=== PATIENT | male | born 1965 | race American Indian/Alaskan Native ===

== ENCOUNTER 2018-01-11 16:37 | Inpatient (IN) | payer BC ==
[2018-01-11 16:37] VITALS: BMI 33.9
--- NOTE | 2018-01-11 17:00 | C.PDOC ---
History Of Present Illness 52 y/o male presents to ED requesting detox from Heroin. Patient reports last use 9am this morning and denies ETOH use, PCP use, SI/HI or any other complaints at this time. Time Seen by Provider: 01/11/18 16:57 Chief Complaint (Nursing): Medical Clearance History Per: Patient History/Exam Limitations: no limitations Onset/Duration Of Symptoms: Days Current Symptoms Are (Timing): Still Present Suicide/Self Injury Attempted (Context): None Modifying Factor(s): Other (heroin) Past Medical History Reviewed: Historical Data, Nursing Documentation, Vital Signs Vital Signs: Last Vital Signs Temp 98.6 F 01/11/18 18:13 Pulse 88 01/11/18 18:13 Resp 18 01/11/18 18:13 BP 166/76 H 01/11/18 18:13 Pulse Ox 100 01/11/18 18:13 - Medical History PMH: Depression, Diabetes, HTN Surgical History: No Surg Hx - [facility] DPT ADMINISTRATION (03/29/13) Family History: States: No Known Family Hx - Social History Hx Tobacco Use: Yes Hx Alcohol Use: No Hx Substance Use: No - Immunization History Hx Tetanus Toxoid Vaccination: No Hx Influenza Vaccination: No Hx Pneumococcal Vaccination: No Review Of Systems Constitutional: Negative for: Fever, Chills Cardiovascular: Negative for: Chest Pain Respiratory: Negative for: Shortness of Breath Gastrointestinal: Negative for: Nausea, Vomiting Psych: Negative for: Suicidal ideation, Withdrawal Physical Exam - Physical Exam Appears: Non-toxic, No Acute Distress Skin: Warm, Dry, No Rash Head: Atraumatic, Normacephalic Eye(s): bilateral: Normal Inspection Oral Mucosa: Moist Neck: Normal ROM, Supple Cardiovascular: Rhythm Regular Respiratory: Normal Breath Sounds, No Rales, No Rhonchi, No Wheezing Gastrointestinal/Abdominal: Soft, No Tenderness, No Guarding, No Rebound Extremity: Normal ROM, Capillary Refill (<2 seconds) Neurological/Psych: Oriented x3, Normal Speech, Normal Cognition ED Course And Treatment - Laboratory Results Result Diagrams: 01/11/18 17:17 01/11/18 17:17 O2 Sat by Pulse Oximetry: 100 (RA) Pulse Ox Interpretation: Normal Progress - Re-Evaluation Re-evaluation Note: 01/11/18 18:10 MED CLEAR FOR DETOX. CRISIS NOTIFIED Disposition Counseled Patient/Family Regarding: Studies Performed, Diagnosis - Disposition Disposition: HOSPITALIZED Disposition Time: 18:48 Condition: STABLE Forms: [facility] (Gambian) - POA Present On Arrival: None - Clinical Impression Clinical Impression: Narcotic dependence - Scribe Statement The provider has reviewed the documentation as recorded by the Syedibatif Cr All medical record entries made by the Scribe were at my direction and personally dictated by me. I have reviewed the chart and agree that the record accurately reflects my personal performance of the history, physical exam, medical decision making, and the department course for this patient. I have also personally directed, reviewed, and agree with the discharge instructions and disposition. Decision To Admit - Pt Status Changed To: Hospital Disposition Of: Inpatient - Admit Certification Admit to Inpatient:: After my assessment, the patient will require hospitalization for at least two midnights. This is because of the severity of symptoms shown, intensity of services needed, and/or the medical risk in this patient being treated as an outpatient. - InPatient: Physician Admission Certification: I certify that this patient requires 2 or more midnights of care for the following reason:: SEE NOTE - . Bed Request Type: Detox Admitting Physician: Refugio Solomon Patient Diagnosis: Narcotic dependence
[2018-01-11 17:22] LABS: BASO # 0.1 K/uL (0.0-0.2); BASO % 0.9 % (0.0-2.0); EOS # 0.3 K/uL (0.0-0.7); EOS % 3.2 % (0.0-4.0); HEMOGLOBIN 13.4 g/dL (12.0-18.0); LYMPH # 3.5 K/uL (1.0-4.3); LYMPH % 33.4 % (20.0-40.0); MEAN CELL VOLUME 91.4 fL (80.0-94.0); MEAN CORPUSCULAR HEMOGLOBIN 30.9 pg (27.0-31.0); MEAN CORPUSCULAR HGB CONC 33.8 g/dL (33.0-37.0); MEAN PLATELET VOLUME 7.4 fL (7.2-11.7); MONO # 0.7 K/uL (0.0-0.8); MONO % 6.8 % (0.0-10.0); NEUT # 5.7 K/uL (1.8-7.0); NEUT % 55.7 % (50.0-75.0); NRBC % 0.2 % (0.0-2.0); RBC 4.35 Mil/uL (4.40-5.90); RED CELL DISTRIBUTION WIDTH 14.4 % (11.5-14.5); WHITE BLOOD COUNT 10.3 K/uL (4.8-10.8)
[2018-01-11 17:24] LABS: URINE BACTERIA RARE (<OCC); URINE BILIRUBIN NEGATIVE (NEGATIVE); URINE BLOOD NEGATIVE (NEGATIVE); URINE CLARITY Hazy (Clear); URINE COLOR Yellow (YELLOW); URINE GLUCOSE (UA) 1+ mg/dL (Normal); URINE LEUKOCYTE ESTERASE NEG Leu/uL (Negative); URINE PROTEIN 1+ mg/dL (NEGATIVE)
[2018-01-11 17:34] LABS: BARBITURATES, UR NEGATIVE (NEGATIVE); PHENCYCLIDINE, UR NEGATIVE (NEGATIVE)
[2018-01-11 17:52] LABS: ALB/GLOB RATIO 1.2 (1.0-2.1); ALBUMIN 4.1 g/dL (3.5-5.0); ALT/SGPT 20 U/L (21-72); AST/SGOT 25 U/L (17-59); BLOOD UREA NITROGEN 18 mg/dL (9-20); CALCIUM 8.8 mg/dl (8.6-10.4); GFR AFRICAN-AMERICAN > 60; GFR NON-AFRICAN AMERICAN > 60
[2018-01-11 18:06] LABS: BENZODIAZEPINES, UR POSITIVE (NEGATIVE); OPIATES, UR POSITIVE (NEGATIVE)
--- NOTE | 2018-01-11 19:11 | PCM.BM ---
Treatment Plan Problems - Problems identified on initial assessmt poptential for opiate withdrawal Date Initiated: 01/11/18 Time Initiated: 19:10 Status: Active Treatment assets and liabiliti Patient Assests: cognitively intact Patient Liabilities: substance abuse - Milieu Protocol Maintain good personal hygiene: daily Encourage regular showers, daily Remind patient to perform daily oral care, daily Assist patient to perform ADL's Conduct patient checks and document Observation sheet: Q15 minutes Maintain personal safety: every shift Educate patient to report safety concerns to staff, every shift Monitor environment for contraband/sharps Medication safety: Monitor for expected outcome, potential side effects: every shift, Assess barriers to learning: every shift, Assess readiness for medication education: every shift
[2018-01-11] MEDS ORDERED: Benzocaine/Menthol (Cepacol) Lozenge PO PRN (20:21)
[2018-01-11] MEDS ORDERED: Aluminum Hydroxide/Magnesium Hydroxide Susp (30 mL) PO PRN (20:21)
[2018-01-11] MEDS ORDERED: guaiFENesin DM 200 mg-20 mg/10 ml UD PO PRN (20:21)
--- NOTE | 2018-01-12 06:27 | PCM.PSYCH ---
Initial Psychiatric Evaluation - Initial Psychiatric Evaluation Type of Admission: Voluntary Legal Status: Capacity Chief Complaint (in patient's own words): I came here to get help History of Present Illness and Precipitating Events: Pt is a 52 year old , -[place] male who presented to [facility] for detox for heroin. Pt reports of using 15-20 bags of heroin intranasal daily. Pt reports that yesterday he abused almost 7 bags. He also reports of abusing one to 2, 2 mg Xanax bars daily. Pt denies any other substances. Pt reported of being dx with depression and takes Celexa 5 mg. he reports history of one detox in [place]. However he denies any history of any inpatient psychiatric hospitalizations and denies any history of follow-up with any psychiatrist. Pt reports anxiety and reports withdrawal symptoms including nausea, abdominal cramps, joint pains and anxiety. He denies any feelings of hopelessness or helplessness. He denies any suicidal ideation or any homicidal ideation. He denies any auditory or visual hallucinations or any psychosis. Pt reports of being arrested and incarcerated for child support many years ago. PMH DM, HTN Current Medications: Active Medications Generic Name Dose Route Start Last Admin Trade Name Freq PRN Reason Stop Dose Admin Acetaminophen 650 mg 01/11/18 20:21 Tylenol 325mg Tab PO Q4H PRN Pain, moderate (4-7) Al Hydrox/Mg Hydrox/Simethicone 30 ml 01/11/18 20:21 Maalox 30 Ml PO TID PRN Indigestion / Heartburn Benzocaine/Menthol 1 aniyah 01/11/18 20:21 Cepacol Sore Throat PO QID PRN Sore Throat Citalopram Hydrobromide 20 mg 01/12/18 10:00 Celexa PO DAILY KANG Clonidine HCl 0.1 mg 01/11/18 20:21 01/11/18 22:08 Catapres PO 0.1 mg Q8 PRN Administration COWS Score More or Equal to 5 Guaifenesin/Dextromethorphan 10 ml 01/11/18 20:21 Robitussin Dm PO Q4H PRN Cough and congestion Hydroxyzine HCl 25 mg 01/11/18 20:40 01/11/18 22:08 Atarax PO 25 mg Q6 PRN Administration Anxiety Insulin Human Regular 0 unit 01/12/18 07:30 Novolin R SC ACHS KANG Protocol Loperamide HCl 2 mg 01/11/18 20:21 Imodium PO Q8 PRN Diarrhea Metformin HCl 1,000 mg 01/12/18 10:00 Glucophage PO BID KANG Ondansetron HCl 4 mg 01/11/18 20:21 Zofran Tab PO Q8 PRN Nausea/Vomiting Pseudoephedrine HCl 60 mg 01/11/18 20:21 Sudafed Tab PO QID PRN Nasal/Sinus Congestion Trazodone HCl 50 mg 01/11/18 22:00 01/11/18 22:08 Desyrel PO 50 mg HS KANG Administration Past Psychiatric History - Past Psychiatric History Previous Treatment History: Inpatient Pertinent Medical Hx (Current Medical&Sleep Prob, Allergies): Allergies Allergy/AdvReac Type Severity Reaction Status Date / Time No Known Allergies Allergy Verified 01/11/18 16:39 MetFORMIN [glucOPHAGE] 1,000 mg PO BID 02/01/17 Valsartan/Hydrochlorothiazide [Valsartan and Hydrochlorothiazide 12.5 mg-160] 1 tab PO DAILY 02/01/17 Citalopram Hydrobromide [Celexa] 25 mg PO DAILY 01/11/18 Omeprazole 40 mg PO 01/11/18 Sucralfate 01/11/18 Viagra 01/11/18 Review of Systems - Review of Systems All systems: reviewed and no additional remarkable complaints except - Psychiatric Psychiatric: Anxiety, Irritability. absent: Suicidal Ideation Mental Status Examination - Personal Presentation Personal Presentation: Looks stated age - Affect Affect: Constricted - Motor Activity Motor Activity: Calm - Reliability in Providing Information Reliability in Providing Information: Fair - Speech Speech: Organized - Mood Mood: Anxious - Formal Thought Process Formal Thought Process: No Impairment - Obsessions/Compulsions Obsessions: No Compulsions: No - Cognitive Functions Orientation: Person, Place, Situation, Time Sensorium: Alert Attention/Concentration: Attentive Abstract Thinking: [place] Estimate of Intelligence: Below average Judgement: Imparied, as evidence by: Poor judgement, Intact, as evidence by: Insight regarding need for hospitalization - Risk Risk: Withdrawal, Diminished functioning - Strength & Assets Inventory Strength & Assets Inventory: Family support DSM 5 DX - DSM 5 DSM 5 Diagnosis: Opiate use disorder severe Opiate withdrawal Sedative/hypnotic use disorder moderate DM HTN - Recommended/Plan of Treatment Treatment Recommendations and Plan of Treatment: Opiate use disorder severe Opiate withdrawal Sedative/hypnotic use disorder moderate DM HTN Taper with methadone Gabapentin for augmentation if needed Celexa 20 mg daily Trazodone 50 mg As needed medications All risks, benefits and alternatives of the meds discussed, and the pt agreed and understood. Attend groups and activities Supportive therapy and psychoeducation ND for abstinence CBT for relapse prevention Encourage MAT Refer to rehab or IOP, and self-help groups Smoking cessation with ND Nicotine patch if needed - Smoking Cessation Smoking Cessation Initiated: No
[2018-01-12] MEDS: (Novolin R) Insulin Human Regular 100 units/ml vial SC SCH ×4 (07:59→21:21)
--- NOTE | 2018-01-13 06:11 | CP.PCM.CON ---
History of Present Illness - History of Present Illness History of Present Illness: Consult note for Medical services Patient is 52 year old male with Pmhx of DM and HTN who is being consulted at the detoxification unit for elevated high blood pressure. Patient said that he came to the ED on 01/11/2018 due to drug intoxication. Patient admits to having used Xanax and "dope". Patient is sleepy and partially cooperates with history taking process. Patient uses Xanax 2mg three times a week for the past 2 years, and 10 bags of heroin daily. Patient states he was "high" when he came to the emergency room with his , who drove him here. Patient says he does not remember the series of events or the condition he came in the ER. Patient admits to feeling strong heart beats and constipation since . Patient denies Fever, chills, weakness, Vision changes, sore throat, SOB, abdominal pain , , Nausea, vomiting, diarrhea, back pain, leg swelling, or rashes. Allergies: NKDA Meds: Metformin 1000 mg PO BID, valsartan/HCTZ 12.5mg, Celexa 25mg PO Daily , Viagra, sucralfate, Omeprazole Pmhx: narcotic drug abuse, HTN, DM PShx: denies Fmhx: denies Sochx: Pt smokes 1 pack of cigarettes x 30 years. Patient denies alcohol use. Patient uses Xanax and heroin. Patient works in construction. Review of Systems - Constitutional Constitutional: absent: Fatigue, Headache, Night Sweats, Weight Loss, Weakness - EENT Eyes: absent: Change in Vision - Cardiovascular Cardiovascular: Palpitations. absent: Chest Pain, Chest Pain with Activity, Dyspnea - Respiratory Respiratory: absent: Cough, Dyspnea - Gastrointestinal Gastrointestinal: Constipation. absent: Diarrhea, Nausea, Vomiting Additional comments: 3 days constipation - Genitourinary Genitourinary: absent: Difficulty Urinating, Urinary Incontinence, Urinary Frequency - Musculoskeletal Musculoskeletal: absent: Back Pain, Joint Swelling, Muscle Weakness - Neurological Neurological: absent: Confusion, Dizziness, Headaches, Loss of Vision, Weakness - Endocrine Endocrine: Fatigue, Palpitations Past Patient History - Tetanus Immunizations Tetanus Immunization: Unknown - Past Medical History & Family History Past Medical History?: Yes - Past Social History Smoking Status: Heavy Smoker > 10 Cigarettes Daily - CARDIAC Hx Cardiac Disorders: No Hx Hypertension: Yes - PULMONARY Hx Tuberculosis: No - NEUROLOGICAL HX Cerebrovascular Accident: No Hx Seizures: No - ENDOCRINE/METABOLIC Hx Endocrine Disorders: Yes Hx Diabetes Mellitus Type 1: Yes - HEMATOLOGICAL/ONCOLOGICAL Hx Cancer: No Hx Human Immunodeficiency Virus (HIV): No - MUSCULOSKELETAL/RHEUMATOLOGICAL Hx Falls: No - GENITOURINARY/GYNECOLOGICAL Hx Sexually Transmitted Disorders: No - PSYCHIATRIC Hx Substance Use: Yes - SURGICAL HISTORY Hx Surgeries: No Meds Allergies/Adverse Reactions: Allergies Allergy/AdvReac Type Severity Reaction Status Date / Time No Known Allergies Allergy Verified 01/11/18 16:39 - Medications Medications: Current Medications Acetaminophen (Tylenol 325mg Tab) 650 mg PO Q4H PRN PRN Reason: Pain, moderate (4-7) Last Admin: 01/13/18 02:33 Dose: 650 mg Al Hydrox/Mg Hydrox/Simethicone (Maalox 30 Ml) 30 ml PO TID PRN PRN Reason: Indigestion / Heartburn Benzocaine/Menthol (Cepacol Sore Throat) 1 aniyah PO QID PRN PRN Reason: Sore Throat Citalopram Hydrobromide (Celexa) 20 mg PO DAILY [facility] Last Admin: 01/12/18 10:49 Dose: 20 mg Clonidine HCl (Catapres) 0.1 mg PO Q8H PRN PRN Reason: COWS Score More or Equal to 5 Last Admin: 01/13/18 02:58 Dose: 0.1 mg Guaifenesin/Dextromethorphan (Robitussin Dm) 10 ml PO Q4H PRN PRN Reason: Cough and congestion Hydrochlorothiazide (Microzide) 12.5 mg PO DAILY [facility] Last Admin: 01/12/18 16:30 Dose: 12.5 mg Hydroxyzine HCl (Atarax) 25 mg PO Q6 PRN PRN Reason: Anxiety Last Admin: 01/11/18 22:08 Dose: 25 mg Insulin Human Regular (Novolin R) 0 unit SC ACHS [facility] PRN Reason: Protocol Last Admin: 01/12/18 21:21 Dose: Not Given Loperamide HCl (Imodium) 2 mg PO Q8 PRN PRN Reason: Diarrhea Lorazepam (Ativan) 1 mg PO Q6H PRN PRN Reason: Benzo withdrawal Last Admin: 01/13/18 03:12 Dose: 1 mg Losartan Potassium (Cozaar) 100 mg PO DAILY [facility] Last Admin: 01/12/18 16:36 Dose: 100 mg Metformin HCl (Glucophage) 1,000 mg PO BID [facility] Last Admin: 01/12/18 18:34 Dose: Not Given Ondansetron HCl (Zofran Tab) 4 mg PO Q8 PRN PRN Reason: Nausea/Vomiting Pantoprazole Sodium (Protonix Ec Tab) 40 mg PO DAILY [facility] Pseudoephedrine HCl (Sudafed Tab) 60 mg PO QID PRN PRN Reason: Nasal/Sinus Congestion Sucralfate (Carafate Tab) 1 gm PO DAILY [facility] Trazodone HCl (Desyrel) 50 mg PO HS [facility] Last Admin: 01/12/18 22:15 Dose: Not Given Physical Exam - Constitutional Appears: Non-toxic, No Acute Distress - Head Exam Head Exam: ATRAUMATIC, NORMAL INSPECTION, NORMOCEPHALIC - Eye Exam Eye Exam: EOMI, Normal appearance, PERRL - Neck Exam Neck exam: Positive for: Normal Inspection - Respiratory Exam Respiratory Exam: Clear to Auscultation Bilateral, NORMAL BREATHING PATTERN. absent: Rales, Rhonchi, Wheezes - Cardiovascular Exam Cardiovascular Exam: REGULAR RHYTHM, +S1, +S2. absent: Clicks, Gallop - GI/Abdominal Exam GI & Abdominal Exam: Hyperactive Bowel Sounds, Soft. absent: Guarding, Rebound , Rigid, Tenderness - Extremities Exam Extremities exam: Positive for: normal inspection. Negative for: joint swelling , tenderness - Back Exam Back exam: NORMAL INSPECTION - Psychiatric Exam Additional comments: Somnolent during examination - Skin Skin Exam: Dry, Intact, Normal Color Results - Vital Signs Recent Vital Signs: Last Vital Signs Temp 98.5 F 01/12/18 19:18 Pulse 80 01/13/18 03:55 Resp 18 01/12/18 19:18 BP 173/95 H 01/13/18 03:55 Pulse Ox 97 01/12/18 19:18 - Labs Result Diagrams: 01/11/18 17:17 01/11/18 17:17 Labs: Laboratory Results - last 24 hr 01/12/18 01/12/18 07:47 16:41 POC Glucose (mg/dL) 168 H 94 Assessment & Plan - Assessment and Plan (Free Text) Plan: 1. Elevated high blood pressure - History of HTN - Likely due to Opiate withdrawal, day 2 - BP 01/13 @ 02:00, 205/121 - Patient received clonidine 0.1 mg PO Q8h PRN, first dose at 02: 58, and Ativan 1gm PO Q6 PRN. - BP now 168/97, HR 81 -Home meds: HCTZ 12.5 mg PO daily, Valsartan and HCTZ 12.5 PO daily - Medications: * Cozaar 100mg PO Q daily * HCTZ 12.5 PO daily - Continue to check Blood pressure, now trending down 2. Opiate Withdrawal - Urine Tox: Positive for Opiates and Methadone - Medications: * Methadone 20mg PO daily taper * Lorazepam 1mg PO Q6 PRN * Celexa 20mg PO Daily * Atarax 25 mg PO daily - Q15 min check for safety 3. DM - POC glucose: 94 - Insulin ACHS - Metformin 1000 PO BID - Accuchecks 4. Prophylaxis - GI Prophylaxis: Protonix 40 mg PO daily - Regular diet - Date & Time Date: 01/13/18 Time: 08:07
--- NOTE | 2018-01-13 08:02 | CP.PCM.PN ---
Subjective - Date & Time of Evaluation Date of Evaluation: 01/13/18 Time of Evaluation: 10:35 - Subjective Subjective: PGY1 Resident Note for Dr. Musa. Patient currently in detox, tested positive on admission for opiates, methadone , and benzodiazepines, consulted for hypertension management. Patient seen and examined at bedside. Patient laying in bed, no acute distress. Patient denies chest pain, headaches, difficulty breathing, trouble voiding, constipation. Patient states he headache has subsided from last night at which that time time it was "pounding." Objective - Vital Signs/Intake and Output Vital Signs (last 24 hours): Temp Pulse Resp BP Pulse Ox 98.3 F 81 18 168/97 H 95 01/13/18 06:31 01/13/18 06:31 01/13/18 06:31 01/13/18 06:31 01/13/18 06:31 - Medications Medications: Current Medications Acetaminophen (Tylenol 325mg Tab) 650 mg PO Q4H PRN PRN Reason: Pain, moderate (4-7) Last Admin: 01/13/18 02:33 Dose: 650 mg Al Hydrox/Mg Hydrox/Simethicone (Maalox 30 Ml) 30 ml PO TID PRN PRN Reason: Indigestion / Heartburn Benzocaine/Menthol (Cepacol Sore Throat) 1 aniyah PO QID PRN PRN Reason: Sore Throat Citalopram Hydrobromide (Celexa) 20 mg PO DAILY [facility] Last Admin: 01/12/18 10:49 Dose: 20 mg Clonidine HCl (Catapres) 0.1 mg PO Q8H PRN PRN Reason: COWS Score More or Equal to 5 Last Admin: 01/13/18 02:58 Dose: 0.1 mg Guaifenesin/Dextromethorphan (Robitussin Dm) 10 ml PO Q4H PRN PRN Reason: Cough and congestion Hydrochlorothiazide (Microzide) 12.5 mg PO DAILY [facility] Last Admin: 01/12/18 16:30 Dose: 12.5 mg Hydroxyzine HCl (Atarax) 25 mg PO Q6 PRN PRN Reason: Anxiety Last Admin: 01/11/18 22:08 Dose: 25 mg Insulin Human Regular (Novolin R) 0 unit SC ACHS [facility] PRN Reason: Protocol Last Admin: 01/12/18 21:21 Dose: Not Given Loperamide HCl (Imodium) 2 mg PO Q8 PRN PRN Reason: Diarrhea Lorazepam (Ativan) 1 mg PO Q6H PRN PRN Reason: Benzo withdrawal Last Admin: 01/13/18 03:12 Dose: 1 mg Losartan Potassium (Cozaar) 100 mg PO DAILY [facility] Last Admin: 01/12/18 16:36 Dose: 100 mg Metformin HCl (Glucophage) 1,000 mg PO BID [facility] Last Admin: 01/12/18 18:34 Dose: Not Given Methadone HCl (Methadone) 20 mg PO DAILY [facility] PRN Reason: Taper Stop: 01/17/18 05:59 Ondansetron HCl (Zofran Tab) 4 mg PO Q8 PRN PRN Reason: Nausea/Vomiting Pantoprazole Sodium (Protonix Ec Tab) 40 mg PO DAILY [facility] Pseudoephedrine HCl (Sudafed Tab) 60 mg PO QID PRN PRN Reason: Nasal/Sinus Congestion Sucralfate (Carafate Tab) 1 gm PO DAILY [facility] Trazodone HCl (Desyrel) 50 mg PO HS [facility] Last Admin: 01/12/18 22:15 Dose: Not Given - Labs Labs: 01/11/18 17:17 01/11/18 17:17 - Constitutional Appears: Well, No Acute Distress - Head Exam Head Exam: ATRAUMATIC, NORMAL INSPECTION, NORMOCEPHALIC - Eye Exam Eye Exam: EOMI - ENT Exam ENT Exam: Mucous Membranes Moist - Respiratory Exam Respiratory Exam: Clear to Ausculation Bilateral, NORMAL BREATHING PATTERN. absent: Rales, Rhonchi, Wheezes - Cardiovascular Exam Cardiovascular Exam: REGULAR RHYTHM, +S1, +S2. absent: Irregular Rhythm, Murmur - GI/Abdominal Exam GI & Abdominal Exam: Soft, Normal Bowel Sounds. absent: Distended, Guarding, Rigid - Extremities Exam Extremities Exam: Full ROM, Normal Inspection. absent: Calf Tenderness, Joint Swelling - Psychiatric Exam Psychiatric exam: Normal Affect, Normal Mood - Skin Skin Exam: Dry, Intact, Normal Color, Warm Assessment and Plan - Assessment and Plan (Free Text) Assessment: 52 y male /w PMHx HTN presents to ED on 01/11 requesting Detox (heroin user) 1. Elevated high blood pressure - History of HTN, overnight patient had BP in 200s - possibly due to opiate withdrawal - BP trended down to 170s overnight - Resumed home medication metoprol tartrate 25 mg BID PO QD - Continue Cozaar 100mg PO QD - HCTZ increased to 25mg PO QD - Continue to monitor BP 2. Opiate Withdrawal - Urine Tox: Positive for Opiates and Methadone - Detox - managing withdrawal symptoms - Medications: * Methadone 20mg PO daily taper * Lorazepam 1mg PO Q6 PRN * Celexa 20mg PO Daily * Atarax 25 mg PO daily * Trazodone 50mg PO HS * Sucralfate 1gm PO daily * Pseudoephrine * Imodium 2mg PO Q8 PRN * Aluminum Hydroxide 30mg PO TID PRN * Benzocaine/menthol 1 oz PO QID * Robitussin 10 ml PO Q4H PRN * Gabapentin 100 mg PO TID 3. DM - POC glucose: 138 - Metformin 500 PO BID (home med dosage) - ISS 4. Prophylaxis - GI Prophylaxis: Protonix 40 mg PO daily - Regular diet
[2018-01-13] MEDS: (Novolin R) Insulin Human Regular 100 units/ml vial SC SCH ×4 (08:11→21:20)
[2018-01-13] MEDS: Pantoprazole 40 mg EC Tab PO SCH (09:33)
--- NOTE | 2018-01-13 11:01 | PCM.PYCHPN ---
Psychiatric Progress Note - Psychiatric Progress Note Patient seen today, length of contact: 15 min Patient Chief Complaint: I am still withdrawing Problems Identified/Issues Discussed: Patient seen and evaluated, chart reviewed and discussed with the nurse. The patient reports irritability and reports withdrawal symptoms including abdominal cramps, back pain, anxiety, and sweating. He is tolerating the detox protocol medications and denies any feelings of hopelessness or helplessness. He denies any suicidal ideation or homicidal ideation. He denies any side effects of the medications. Supportive therapy and psychoeducation were given. Medication Change: Yes Medical Record Reviewed: Yes Mental Status Examination - Cognitive Function Orientation: Person, Place, Situation, Time Memory: Intact Attention: WNL Concentration: Poor Association: WNL Fund of Knowledge: Poor - Mood Mood: Anxious - Affect Affect: Constricted - Speech Speech: Soft - Formal Thought Process Formal Thought Process: No Impairment - Suicidal Ideation Suicidal Ideation: No - Homicidal Ideation Homicidal Ideation: No Goal/Treatment Plan - Goal/Treatment Plan Need for Continued Stay: Severe depression anxiety, Severe functional impairment Progress Toward Problem(s) and Goals/Treatment Plan: Opiate use disorder severe Opiate withdrawal Sedative/hypnotic use disorder moderate Depressive disorder DM HTN Taper with methadone Gabapentin for augmentation if needed Celexa 20 mg daily Trazodone 50 mg As needed medications All risks, benefits and alternatives of the meds discussed, and the pt agreed and understood. Attend groups and activities Supportive therapy and psychoeducation HI for abstinence CBT for relapse prevention Encourage MAT Refer to rehab or IOP, and self-help groups Smoking cessation with HI Nicotine patch if needed
[2018-01-13] MEDS ORDERED: Glucagon Recombinant 1 mg Inj IM PRN (13:12)
[2018-01-13] MEDS ORDERED: Dextrose 50% SYRINGE Inj (50 ml) IV PRN (13:12)
[2018-01-14] MEDS: (Novolin R) Insulin Human Regular 100 units/ml vial SC SCH ×4 (08:30→21:30)
[2018-01-14] MEDS: Pantoprazole 40 mg EC Tab PO SCH (09:19)
--- NOTE | 2018-01-14 13:32 | PCM.PYCHPN ---
Psychiatric Progress Note - Psychiatric Progress Note Patient seen today, length of contact: 15 min Patient Chief Complaint: "I'm better" Problems Identified/Issues Discussed: The pt is seen, chart reviewed, case discussed with staff. Support and psychoeducation given, CBT and OH used briefly No new symptoms reported, improving slowly and needs more time No SEs from medications, risks discussed. After care discussed Medication Change: Yes (detox changes daily) Medical Record Reviewed: Yes Mental Status Examination - Cognitive Function Orientation: Person, Place, Situation, Time Memory: Intact Attention: WNL Concentration: Poor Association: WNL Fund of Knowledge: Poor - Mood Mood: Anxious - Affect Affect: Constricted - Speech Speech: Soft - Formal Thought Process Formal Thought Process: No Impairment - Suicidal Ideation Suicidal Ideation: No - Homicidal Ideation Homicidal Ideation: No Goal/Treatment Plan - Goal/Treatment Plan Need for Continued Stay: Discharge may exacerbated symptoms, Severe functional impairment Progress Toward Problem(s) and Goals/Treatment Plan: Continue medications Support and psychoeducation daily Attend groups and activities daily After care planning by GUILLERMO
--- NOTE | 2018-01-14 16:28 | CP.PCM.PN ---
Subjective - Date & Time of Evaluation Date of Evaluation: 01/14/18 Time of Evaluation: 15:44 - Subjective Subjective: PGY-1 Medicine Progress Note for hospitalist Dr. Musa. Patient was seen and examined today at bedside in no acute distress. Nurse reports on overnight events, but did use the PRN hydralazine for blood pressure. Patient reports no acute problems. Denies current headache, palpitations, chest pain, dizziness, shortness of breath, nausea, vomiting, diarrhea, constipation. Objective - Vital Signs/Intake and Output Vital Signs (last 24 hours): Temp Pulse Resp BP Pulse Ox 98.3 F 82 20 105/69 100 01/14/18 13:05 01/14/18 13:05 01/14/18 13:05 01/14/18 13:05 01/14/18 13:05 - Medications Medications: Current Medications Acetaminophen (Tylenol 325mg Tab) 650 mg PO Q4H PRN PRN Reason: Pain, moderate (4-7) Last Admin: 01/13/18 02:33 Dose: 650 mg Al Hydrox/Mg Hydrox/Simethicone (Maalox 30 Ml) 30 ml PO TID PRN PRN Reason: Indigestion / Heartburn Last Admin: 01/13/18 13:28 Dose: 30 ml Benzocaine/Menthol (Cepacol Sore Throat) 1 aniyah PO QID PRN PRN Reason: Sore Throat Citalopram Hydrobromide (Celexa) 20 mg PO DAILY [facility] Last Admin: 01/14/18 09:19 Dose: 20 mg Clonidine HCl (Catapres) 0.1 mg PO Q8H PRN PRN Reason: COWS Score More or Equal to 5 Last Admin: 01/14/18 11:10 Dose: 0.1 mg Dextrose (Dextrose 50% Inj) 0 ml IV STAT PRN; Protocol PRN Reason: Hypoglycemia Protocol Dextrose (Glutose 15) 0 gm PO ONCE PRN; Protocol PRN Reason: Hypoglycemia Protocol Gabapentin (Neurontin) 100 mg PO TID [facility] Last Admin: 01/14/18 13:17 Dose: Not Given Glucagon (Glucagen Diagnostic Kit) 0 mg IM STAT PRN; Protocol PRN Reason: Hypoglycemia Protocol Guaifenesin/Dextromethorphan (Robitussin Dm) 10 ml PO Q4H PRN PRN Reason: Cough and congestion Hydrochlorothiazide (Hydrodiuril) 25 mg PO DAILY [facility] Last Admin: 01/14/18 09:19 Dose: 25 mg Hydroxyzine HCl (Atarax) 25 mg PO Q6 PRN PRN Reason: Anxiety Last Admin: 01/14/18 01:07 Dose: 25 mg Dextrose (Dextrose 5% In Water 1000 Ml) 1,000 mls @ 0 mls/hr IV .Q0M PRN; Protocol; Per Protocol PRN Reason: Hypoglycemia Protocol Insulin Human Regular (Novolin R) 0 unit SC ACHS [facility] PRN Reason: Protocol Last Admin: 01/14/18 12:30 Dose: Not Given Loperamide HCl (Imodium) 2 mg PO Q8 PRN PRN Reason: Diarrhea Lorazepam (Ativan) 1 mg PO Q6H PRN PRN Reason: Benzo withdrawal Last Admin: 01/14/18 06:02 Dose: 1 mg Losartan Potassium (Cozaar) 100 mg PO DAILY [facility] Last Admin: 01/14/18 09:19 Dose: 100 mg Metformin HCl (Glucophage) 500 mg PO BIDCC [facility] Last Admin: 01/14/18 08:40 Dose: 500 mg Methadone HCl (Methadone) 15 mg PO DAILY [facility] PRN Reason: Taper Stop: 01/17/18 05:59 Last Admin: 01/14/18 09:20 Dose: 15 mg Metoprolol Tartrate (Lopressor) 25 mg PO BID [facility] Last Admin: 01/14/18 09:19 Dose: 25 mg Ondansetron HCl (Zofran Tab) 4 mg PO Q8 PRN PRN Reason: Nausea/Vomiting Pantoprazole Sodium (Protonix Ec Tab) 40 mg PO DAILY [facility] Last Admin: 01/14/18 09:19 Dose: 40 mg Pseudoephedrine HCl (Sudafed Tab) 60 mg PO QID PRN PRN Reason: Nasal/Sinus Congestion Sucralfate (Carafate Tab) 1 gm PO DAILY [facility] Last Admin: 01/14/18 09:19 Dose: 1 gm Trazodone HCl (Desyrel) 50 mg PO HS [facility] Last Admin: 01/13/18 22:53 Dose: 50 mg - Labs Labs: 01/11/18 17:17 01/11/18 17:17 - Constitutional Appears: Well, No Acute Distress - Head Exam Head Exam: ATRAUMATIC, NORMOCEPHALIC - Eye Exam Eye Exam: EOMI, Normal appearance, PERRL. absent: Scleral icterus - ENT Exam ENT Exam: Mucous Membranes Moist, Normal Exam - Neck Exam Neck Exam: Full ROM, Normal Inspection - Respiratory Exam Respiratory Exam: Clear to Ausculation Bilateral, NORMAL BREATHING PATTERN. absent: Rales, Rhonchi, Wheezes - Cardiovascular Exam Cardiovascular Exam: REGULAR RHYTHM, +S1, +S2. absent: Gallop, JVD, Rubs, Murmur - GI/Abdominal Exam GI & Abdominal Exam: Soft, Normal Bowel Sounds. absent: Firm, Guarding, Tenderness - Extremities Exam Extremities Exam: Full ROM, Normal Capillary Refill, Normal Inspection. absent : Joint Swelling, Pedal Edema - Neurological Exam Neurological Exam: Alert, Awake, Normal Gait, Oriented x3 - Psychiatric Exam Psychiatric exam: Normal Affect, Normal Mood - Skin Skin Exam: Dry, Intact, Normal Color, Warm Assessment and Plan - Assessment and Plan (Free Text) Plan: 1. Elevated high blood pressure - History of HTN - Likely due to Opiate withdrawal, day 3 - Highest BP overnight @ 17:21, 194/111. given prn hydralazine - Home meds: HCTZ 12.5 mg PO daily, Valsartan and HCTZ 12.5 PO daily - Medications: * Amlodipine 5mg po daily * Cozaar 100mg PO Q daily * HCTZ increased to 25mg from 12.5 PO daily * Lopressor 25mg po bid * Clonidine 0.1mg po q8 prn - Continue to check Blood pressure, now trending down 2. Opiate Withdrawal - Urine Tox: Positive for Opiates and Methadone - Medications: * Methadone 20mg PO daily taper * Lorazepam 1mg PO Q6 PRN * Celexa 20mg PO Daily * Atarax 25 mg PO daily - Q15 min check for safety 3. DM - POC glucose: 158 - ISS moderate - patient is refusing insulin. not given 2 out of 3 times per ISS protocol. - Metformin switched 500mg from 1000 PO BID - Accsammie WORLEYS 4. Prophylaxis - GI Prophylaxis: Protonix 40 mg PO daily - anticoag not indicated at this time - Regular diet
[2018-01-15 06:42] VITALS: PULSE 90; TEMP 98.9
[2018-01-15] MEDS: (Novolin R) Insulin Human Regular 100 units/ml vial SC SCH (08:18)
--- NOTE | 2018-01-15 08:43 | PCM.PYCHDC ---
Mental Status Examination - Mental Status Examination Orientation: Person Discharge Summary - Discharge Note Laboratory Data: Abnormal Lab Results 01/14/18 11:35 POC Glucose (mg/dL) 158 H Consultations:: List each consultation separately and include: 1. Reason for request. 2. Findings. 3. Follow-up Summary of Hospital Course include:: 1. Description of specific treatment plan utilized for patients during their course of treatmen. 2. Summarize the time- course for resolution of acute symptoms and/or regressed behaviors. 3. Describe issues identified and worked on during hospitalization. 4. Describe medication utilized. 5. Describe medical problems identified and treated. 6. Reassessment of suicide risk - Final Diagnosis (DSM 5) Condition upon Discharge: STABLE Disposition: HOME/ ROUTINE Follow-up Treatment Plan: Continue medications Support and psychoeducation daily Attend groups and activities daily After care planning by GUILLERMO
[2018-01-15 08:55] VITALS: BP 150/90; RESP 20; O2SAT 99
--- NOTE | 2018-01-15 09:46 | CP.PCM.PN ---
Subjective - Date & Time of Evaluation Date of Evaluation: 01/15/18 Time of Evaluation: 07:34 - Subjective Subjective: PGY-1 Medicine Progress Note for hospitalist Dr. Musa Patient was seen and examined sitting up in chair today in no acute distress. Nurse reported no overnight events. Patient reports no acute problems. Patient is very agitated and adamant about leaving the hospital today. Denies headache, palpitations, sweating, shortness of breath, chest pain, abdominal, nausea, vomiting, constipation, diarrhea. Objective - Vital Signs/Intake and Output Vital Signs (last 24 hours): Temp Pulse Resp BP Pulse Ox 98.9 F 90 20 150/90 99 01/15/18 06:41 01/15/18 08:00 01/15/18 08:00 01/15/18 08:00 01/15/18 08:00 - Labs Labs: 01/11/18 17:17 01/11/18 17:17 - Constitutional Appears: Well, Non-toxic, In Acute Distress, Agitated - Head Exam Head Exam: ATRAUMATIC, NORMOCEPHALIC - Eye Exam Eye Exam: EOMI, Normal appearance. absent: Nystagmus, Scleral icterus - ENT Exam ENT Exam: Mucous Membranes Moist, Normal Exam - Respiratory Exam Respiratory Exam: Clear to Ausculation Bilateral, NORMAL BREATHING PATTERN. absent: Rales, Rhonchi, Wheezes - Cardiovascular Exam Cardiovascular Exam: REGULAR RHYTHM, +S1, +S2. absent: Murmur - GI/Abdominal Exam GI & Abdominal Exam: Soft, Normal Bowel Sounds. absent: Firm, Guarding, Rigid, Tenderness - Extremities Exam Extremities Exam: Full ROM, Normal Capillary Refill, Normal Inspection. absent : Joint Swelling, Pedal Edema - Neurological Exam Neurological Exam: Alert, Awake, Normal Gait, Oriented x3 - Psychiatric Exam Psychiatric exam: Agitated, Normal Affect, Normal Mood - Skin Skin Exam: Dry, Intact, Normal Color, Warm Assessment and Plan - Assessment and Plan (Free Text) Plan: 1. Elevated high blood pressure - History of HTN - Likely due to Opiate withdrawal, day 4 - Highest BP overnight @ 17:24, 149/100. prn clonidine not indicted at that time - [facility] called - Home meds: Diovan HCT 320/25 po daily (Last pickup 01/09/18 90 day supply) Toprol XL 25mg po daily. Last pickup 01/09/18 (Last pickup 11/20/17 90 day supply) - Medications: * Amlodipine 5mg po daily * Cozaar 100mg PO Q daily * HCTZ increased to 25mg from 12.5 PO daily * Lopressor 25mg po bid * Clonidine 0.1mg po q8 prn - Continue to check Blood pressure, now trending down - Patient 2. Opiate Withdrawal - Urine Tox: Positive for Opiates and Methadone - Medications: * Methadone 20mg PO daily taper * Lorazepam 1mg PO Q6 PRN * Celexa 20mg PO Daily * Atarax 25 mg PO daily - Q15 min check for safety 3. DM - POC glucose: 159 - ISS moderate - patient is refusing insulin and POC Accuchecks. When allowing, random glucose stable in 150s - Metformin 500mg PO BID. Patient refusing. - [facility] called: picked up 90 day supply of Metformin 1000mg po BID 11/20/17 - [facility] picked up 60 day supply 01/09/18 - [facility] not picked up - Accuchecks ACHS 4. Prophylaxis - GI Prophylaxis: Protonix 40 mg PO daily - anticoag not indicated at this time - Regular diet Dispo: Patient is managed in hospital. Sign-off. Patient was educated on substance abuse cessation, compliance with hypertension and diabetes medication , and encouraged to follow up with primary care doctor. He has been educated to continue keeping a log of his home blood pressures and blood sugars. If he has decided to leave his current primary care provider, the [facility] can be offered for a follow up appointment. Patient was discharged before rounding with attending. Attempted to reach through phone. Currently has enough blood pressure and diabetes medication to last until next primary care appointment.
== END 2018-01-15 08:57 | disposition home or self-care (01) | DRG 895 ==
LOC: C.ER 16:37 → C.7D 18:49
PROVIDERS: ADMIT Psychiatry & Neurology Psychiatry; ATTEND Psychiatry & Neurology Psychiatry
PROC: HZ2ZZZZ Detoxification Services for Substance Abuse Treatment (ICD-10-PCS; principal; 2018-01-11)
PROC: HZ52ZZZ Individual Psychotherapy for Substance Abuse Treatment, Cognitive-Behavioral (ICD-10-PCS; 2018-01-11)
PROC: HZ59ZZZ Individual Psychotherapy for Substance Abuse Treatment, Supportive (ICD-10-PCS; 2018-01-11)
PROC: HZ56ZZZ Individual Psychotherapy for Substance Abuse Treatment, Psychoeducation (ICD-10-PCS; 2018-01-11)
PROC: HZ42ZZZ Group Counseling for Substance Abuse Treatment, Cognitive-Behavioral (ICD-10-PCS; 2018-01-11)
PROC: HZ46ZZZ Group Counseling for Substance Abuse Treatment, Psychoeducation (ICD-10-PCS; 2018-01-11)
PROC: GZHZZZZ Group Psychotherapy (ICD-10-PCS; 2018-01-11)
PROC: GZ58ZZZ Individual Psychotherapy, Cognitive-Behavioral (ICD-10-PCS; 2018-01-11)
PROC: GZ56ZZZ Individual Psychotherapy, Supportive (ICD-10-PCS; 2018-01-11)
DX: F11.23 Opioid dependence with withdrawal (principal); F13.20 Sedative, hypnotic or anxiolytic dependence, uncomplicated; F32.9 Major depressive disorder, single episode, unspecified; I10 Essential (primary) hypertension; F41.9 Anxiety disorder, unspecified; F17.210 Nicotine dependence, cigarettes, uncomplicated; E11.9 Type 2 diabetes mellitus without complications; Z79.4 Long term (current) use of insulin